=== PATIENT | female | born 1975 | race Caucasian/White ===

== ENCOUNTER 2017-12-19 15:10 | Emergency (ER) | payer BC ==
[2017-12-19] MEDS ORDERED: ACETAMINOPHEN-CODEINE 300/30MG TAB ONE (16:30)
== END 2017-12-19 16:36 | disposition home or self-care (01) ==
LOC: EDH 15:10
DX: G89.29 Other chronic pain (principal); M25.562 Pain in left knee; Z88.0 Allergy status to penicillin; Z88.8 Allergy status to other drugs, medicaments and biological substances

== ENCOUNTER 2019-03-06 16:49 | Emergency (ER) | payer BC, MEDICAID ==
[2019-03-06] MEDS ORDERED: OCTYL 2-CYANOACRYLATE 1 EACH TP ONE (17:31)
[2019-03-06] MEDS ORDERED: TETANUS/DIPHTHERIA TOXOID [ADULT] 0.5 ML VIAL IM ONE (17:32)
[2019-03-06] MEDS ORDERED: LEVETIRACETAM 500 MG TABLET PO ONE (17:32)
[2019-03-06 18:29] LABS: AMPHET/METH SCREEN,URINE NEGATIVE (NEGATIVE); BARBITURATE SCREEN, URINE POSITIVE (NEGATIVE); BENZODIAZEPINES SCREEN,URINE POSITIVE (NEGATIVE); CANNABINOID SCREEN,URINE NEGATIVE (NEGATIVE); COCAINE SCREEN,URINE NEGATIVE (NEGATIVE); OPIATE SCREEN,URINE POSITIVE (NEGATIVE); PHENCYCLIDINE SCREEN,URINE NEGATIVE (NEGATIVE)
[2019-03-06 18:32] LABS: HCG,QUAL RESULT NEGATIVE (NEGATIVE)
[2019-03-06] MEDS ORDERED: IBUPROFEN 200 MG TAB ONE (18:54)
== END 2019-03-06 19:03 | disposition home or self-care (01) ==
LOC: EDH 16:49
DX: S01.111A Laceration without foreign body of right eyelid and periocular area, initial encounter (principal); G40.89 Other seizures; F31.9 Bipolar disorder, unspecified; M54.2 Cervicalgia; I10 Essential (primary) hypertension; Z88.0 Allergy status to penicillin; Z88.8 Allergy status to other drugs, medicaments and biological substances; X58.XXXA Exposure to other specified factors, initial encounter; Y93.89 Activity, other specified; Y92.89 Other specified places as the place of occurrence of the external cause; Y99.8 Other external cause status
CPT/HCPCS: 12011; 36415; 70450; 80177; 80178; 80305; 81025; 90471; 90714